=== PATIENT | male | born 1975 | race Caucasian/White ===

== ENCOUNTER 2022-07-08 14:33 | Outpatient (CLI) | payer BC, SELFPAY ==
[2022-07-08 21:35] LABS: Chloride* 98 mmol/L (96-114)
[2022-07-08 21:36] LABS: Potassium* 4.6 mmol/L (3.6-5.1); Sodium* 137 mmol/L (135-149)
[2022-07-08 21:38] LABS: Creatinine* 0.7 mg/dL (0.5-1.5); Estimated Glomerular Filt Rate 115 ml/min
[2022-07-08 21:39] LABS: Blood Urea Nitrogen* 15 mg/dL (5-24); Calcium* 8.8 mg/dL (8.4-10.6); Carbon Dioxide* 27 mmol/L (20-32); Glucose* 256 mg/dL (60-115)
== END 2022-07-08 14:34 | disposition home or self-care (01) ==
LOC: LKVREF 14:34
PROVIDERS: PCP Family Medicine; Visit Provider Student in an Organized Health Care Education/Training Program
DX: R73.9 Hyperglycemia, unspecified (principal); E11.9 Type 2 diabetes mellitus without complications
CPT/HCPCS: 80048

== ENCOUNTER 2022-07-14 08:02 | Outpatient (CLI) | payer BC, SELFPAY ==
[2022-07-14 14:27] LABS: Albumin* 4.9 g/dL (3.3-5.0); Chloride* 102 mmol/L (96-114); Sodium* 141 mmol/L (135-149)
[2022-07-14 14:28] LABS: Potassium* 5.1 mmol/L (3.6-5.1)
[2022-07-14 14:30] LABS: Alkaline Phosphatase* 53 U/L (40-150); Aspartate Amino Transferase* 111 U/L (12-35); Blood Urea Nitrogen* 14 mg/dL (5-24); Carbon Dioxide* 25 mmol/L (20-32); Cholesterol* 261 mg/dL (90-199); Creatinine* 0.8 mg/dL (0.5-1.5); Estimated Glomerular Filt Rate 111 ml/min; Glucose* 174 mg/dL (60-115)
[2022-07-14 14:31] LABS: Alanine Aminotransferase* 253 U/L (4-50); Calcium* 9.9 mg/dL (8.4-10.6); HDL Cholesterol* 44 mg/dL (>=40); LDL Cholesterol Calculated 184 mg/dL (<100); Triglycerides* 166 mg/dL (40-149)
== END 2022-07-14 08:03 | disposition home or self-care (01) ==
PROVIDERS: PCP Family Medicine; Visit Provider Family Medicine
DX: E13.9 Other specified diabetes mellitus without complications (principal); E78.5 Hyperlipidemia, unspecified; I10 Essential (primary) hypertension; E66.9 Obesity, unspecified
CPT/HCPCS: 80053; 80061

== ENCOUNTER 2023-07-30 08:21 | Outpatient (CLI) | payer BC, SELFPAY ==
--- NOTE | 2023-07-30 10:13 | W.ANESCHARGE ---
Anesthesia Charges Start Date/Time Anesthesia Start Date: 07/30/23 Anesthesia Start Time: 09:18 Stop Date/Time Anesthesia Stop Date: 07/30/23 Anesthesia Stop Time: 10:04
== END 2023-07-30 08:22 | disposition home or self-care (01) ==
LOC: OP CLINIC 08:22
PROVIDERS: PCP Family Medicine; Visit Provider Surgery
DX: Z12.11 Encounter for screening for malignant neoplasm of colon (principal); K63.5 Polyp of colon
CPT/HCPCS: 00811; 45385; 88305; J2704

== ENCOUNTER 2023-10-23 15:04 | Outpatient (CLI) | payer BC, SELFPAY | END 2023-10-23 15:05 | disposition home or self-care (01) | LOC: LKVREF 15:05 | PROVIDERS: PCP Family Medicine; Visit Provider Family Medicine | DX: I10 Essential (primary) hypertension (principal); K76.0 Fatty (change of) liver, not elsewhere classified | CPT/HCPCS: 80053 ==

== ENCOUNTER 2024-07-11 15:40 | Outpatient (CLI) | payer BC, SELFPAY | END 2024-07-11 15:41 | disposition home or self-care (01) | LOC: LKVREF 15:42 | PROVIDERS: PCP Family Medicine; Visit Provider Family Medicine | DX: I10 Essential (primary) hypertension (principal); E78.5 Hyperlipidemia, unspecified; E13.9 Other specified diabetes mellitus without complications; E78.00 Pure hypercholesterolemia, unspecified | CPT/HCPCS: 80061 ==

== ENCOUNTER 2025-08-30 13:57 | Outpatient (CLI) | payer BC, SELFPAY | END 2025-08-30 13:58 | disposition home or self-care (01) | PROVIDERS: PCP Family Medicine; Visit Provider Family Medicine | DX: I10 Essential (primary) hypertension (principal); E78.5 Hyperlipidemia, unspecified | CPT/HCPCS: 80053; 80061 ==